=== PATIENT | female | born 1990 | race Caucasian/White ===

== ENCOUNTER 2023-07-10 11:03 | Outpatient (RCR) | payer BC, SELFPAY ==
[2023-07-10 11:07] VITALS: BMI 54.8
[2023-07-10 14:57] VITALS: BMI 54.8
== END 2023-09-29 09:18 | disposition home or self-care (01) ==
LOC: ANHDMC 11:03
PROVIDERS: PCP Family Medicine; Visit Provider Internal Medicine Endocrinology, Diabetes & Metabolism
DX: E66.01 Morbid (severe) obesity due to excess calories (principal); Z68.43 Body mass index [BMI] 50.0-59.9, adult; Z71.3 Dietary counseling and surveillance
CPT/HCPCS: 97802

== ENCOUNTER 2025-02-09 10:17 | Outpatient (CLI) | payer BC, SELFPAY ==
--- NOTE | ~2025-02-09 | CT_ITS ---
CT of the Abdomen and Pelvis: Indication: Abdominal mass Technique: 2.5 mm axial scans were obtained through the abdomen and pelvis following intravenous adm inistration of 100 cc of Omnipaque 350. Dose reduction technique was used on this scan by utilizing a utomated exposure control and iterative reconstruction technique. The dose-length product (DLP) was 1 083.51 mGy-cm. Findings: Scans through the lung bases are unremarkable. The liver, spleen, pancreas, adrenals and kidneys are within normal limits. Cholecystectomy clips are present. No evidence of aortic aneurysm. No lymphadenopathy. No bowel obstruction or bowel wall thickening. There is no evidence to suggest acute appendicitis. Images through the pelvis were performed. Urinary bladder unremarkable. No adnexal mass seen. No asci nava. Impression: No significant abnormalities seen. No abnormal mass lesion or hernia identified. Reviewed, dictated and finalized at [facility]. Impression: No significant abnormalities seen. No abnormal mass lesion or hernia identified .
== END 2025-02-09 10:18 | disposition home or self-care (01) ==
LOC: MICIMG 10:18
PROVIDERS: PCP Family Medicine; Visit Provider Family Medicine
DX: R19.00 Intra-abdominal and pelvic swelling, mass and lump, unspecified site (principal)
CPT/HCPCS: 74177; Q9967